=== PATIENT | male | born 1980 | race Two or more races ===

== ENCOUNTER 2024-12-09 09:46 | Outpatient (OUT) | payer SELFPAY ==
--- NOTE | 2024-12-09 09:53 | ECG_ITS ---
[facility] Test Date: 2024-12-09 Pat Name: LUKE CHAWLA Department: Room: - Gender: Male [employer]: : 1980 Requested By: Jah Luz Order Number: [id number] Reading MD: TIFFANY GUILLEN M.D. Measurements Intervals Maxwell Rate: 53 P: 45 TX: 191 QRS: 10 QRSD: 97 T: -7 QT: 404 QTc: 382 Interpretive Statements SINUS BRADYCARDIA POSSIBLE RIGHT VENTRICULAR CONDUCTION DELAY [RSR (QR) IN V1/V2] NONSPECIFIC T-WAVE ABNORMALITY Abnormal ECG No previous ECG available for comparison Electronically Signed On 12-09-2024 17:59:01 EDT by TIFFANY GUILLEN M.D.
--- NOTE | 2024-12-09 10:58 | PM.PRESUREVA ---
History of Present Illness History of Present Illness Chief complaint: cubital tunnel syndrome Narrative: Patient presents for presurgical testing. The patient reports ongoing left elbow pain with distal numbness, tingling, and weakness. The patient states this is a work-related injury and he has been waiting nearly 2 years for this procedure. He states he completed physical therapy and has completed a course of NSAIDs with no relief of his symptoms. Review of Systems ROS Narrative REVIEW OF SYSTEMS: Negative except as stated in HPI, ten or more systems reviewed. Constitutional: No fever, chills, weakness ENT: No sore throat or epistaxis Cardiovascular: No edema, chest pain, palpitations, or activity intolerance Respiratory: No shortness of breath, cough, or wheezing Gastrointestinal: No abdominal pain, constipation, diarrhea, or vomiting Genitourinary: No dysuria or hematuria Neurological: No headache Psychiatric: No mood changes [facility] Medical History (Updated 12/09/24 @ 10:57 by Millicent Chou NP) Dental root implant present ?Z97.2 - Presence of dental prosthetic device (complete) (partial) (ICD-10) Skin cancer ?C44.90 - Unspecified malignant neoplasm of skin, unspecified (ICD-10) Fractured coccyx ?S32.2XXA - Fracture of coccyx, initial encounter for closed fracture (ICD-10) Snores ?R06.83 - Snoring (ICD-10) Seizures ?R56.9 - Unspecified convulsions (ICD-10) Hypertension ?I10 - Essential (primary) hypertension (ICD-10) Hypoglycemia ?E16.2 - Hypoglycemia, unspecified (ICD-10) Cubital tunnel syndrome on left ?G56.22 - Lesion of ulnar nerve, left upper limb (ICD-10) Surgical History (Updated 12/09/24 @ 10:56 by Millicent Chou NP) Status post surgical removal of malignant neoplasm of skin ?Z98.890 - Other specified postprocedural states (ICD-10) S/P excision of lipoma ?Z98.890 - Other specified postprocedural states (ICD-10) ?Z86.018 - Personal history of other benign neoplasm (ICD-10) Family History (Updated 12/09/24 @ 10:20 by Millicent Chou NP) Other Family history of cancer Family history of diabetes mellitus Family history of hypertension Family history of myocardial infarction Family history of pancreatic cancer Family history of seizures Family history of stroke Social History (Updated 12/09/24 @ 10:14 by Millicent Chou NP) Within the past year, how often did you have a drink containing alcohol: monthly or less Smoking status: Former smoker Do you use any of these nicotine containing products: smokeless tobacco Non-prescribed substance use: denies use 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 Highest level of school completed/degree received: some college, no degree Meds Home Medications and Allergies Home Medications ?Medication ?Instructions ?Recorded ?Confirmed ?Type levetiracetam 250 mg tablet 250 mg PO Q12H 12/09/24 12/09/24 History lisinopril 20 mg tablet 20 mg PO QPM 12/09/24 12/09/24 History loratadine 10 mg tablet (Claritin) 10 mg PO DAILY 12/09/24 12/09/24 History montelukast 10 mg tablet 10 mg PO DAILY 12/09/24 12/09/24 History Allergies Allergy/AdvReac Type Severity Reaction Status Date / Time carbamazepine (From Tegretol) Allergy elevated Verified 12/09/24 10:04 liver enzymes Exam Narrative Exam Narrative: Constitutional: Awake, alert, comfortable, well-appearing, nontoxic, interactive, vital signs as charted Head: Normocephalic, atraumatic Neck: Supple, normal appearance, normal range of motion, no meningeal signs, no lymphadenopathy Respiratory: No respiratory distress, breath sounds clear Cardiovascular: Regular rate and rhythm, strong and regular heart tones Musculoskeletal: Please see musculoskeletal exam from Dr. Luz dated November 25, 2024 Skin: No rashes or induration, no lesions, only visible skin inspected Neuro: No gross neurological deficits Psychiatric: Oriented ?3, normal affect Assessment and Plan Assessment and Plan (1) Cubital tunnel syndrome on left: Plan Left ulnar nerve decompression and transposition at elbow scheduled with Dr. Luz December 23, 2024.
[2024-12-09 11:54] LABS: Anion Gap 9.9; Calcium 9.3 mg/dL (8.5-10.1); Carbon Dioxide 30.1 mmol/L (21.0-32.0); Chloride 106 mmol/L (98-107); Estimated GFR (African America >60 (>=60 mL/min/1.73m^2); Estimated GFR (Non-African Ame >60 (>=60 mL/min/1.73m^2); Glucose 80 mg/dL (74-106); Sodium 142 mmol/L (136-145)
== END 2024-12-09 09:47 | disposition home or self-care (01) ==
LOC: PST 09:51
PROVIDERS: PCP Family Medicine; Visit Provider Orthopaedic Surgery
DX: Z01.810 Encounter for preprocedural cardiovascular examination (principal); Z01.812 Encounter for preprocedural laboratory examination; Z01.818 Encounter for other preprocedural examination; G56.22 Lesion of ulnar nerve, left upper limb
CPT/HCPCS: 36415; 80048; 93005; G0463